=== PATIENT | male | born 1960 | race Caucasian/White ===

== ENCOUNTER 2021-08-14 15:01 | Inpatient (IN) | payer OTHER ==
[~2021-08-14] VITALS: Ht 193 cm; Wt 82.1 kg
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
[~2021-08-14 15:01] MED LIST: ASPIRIN325 PO
[2021-08-14 15:15] VITALS: BP 121/75
[2021-08-14 15:48] LABS: URINE BILIRUBIN NEGATIVE (Negative); URINE BLOOD NEGATIVE (Negative); URINE CLARITY CLEAR; URINE COLOR YELLOW; URINE GLUCOSE-RANDOM* NEGATIVE (Negative); URINE KETONES NEGATIVE (Negative); URINE LEUKOCYTES-REFLEX NEGATIVE (Negative); URINE NITRITE-REFLEX NEGATIVE (Negative); URINE PROTEIN (DIPSTICK) NEGATIVE (Negative); URINE SPECIFIC GRAVITY >= 1.030 (1.005-1.035)
[2021-08-14 15:48] LABS: ABSOLUTE NEUTROPHILS 4.7 thou/uL (1.4-8.2); BASOPHILS 1.1 % (0.0-2.0); EOSINOPHILS 2.6 % (0.0-3.0); HEMATOCRIT 45.9 % (42.0-52.0); HEMOGLOBIN 15.6 gm/dL (14.0-18.0); LYMPHOCYTES 19.1 % (24.0-44.0); MCH 33.8 pg (26.0-34.0); MCHC 33.9 g/dL (28.0-37.0); MCV 99.6 fL (80.0-100.0); MONOCYTES 8.5 % (1.0-8.0); PLATELET COUNT 211 thou/uL (150-400); POLYS 68.7 % (36.0-66.0); RBC 4.61 mil/uL (4.50-6.00); RDW 13.4 % (10.5-14.5); WBC 6.9 thou/uL (4.0-11.0)
[2021-08-14 15:57] LABS: ANION GAP 6 mmol/L (7-16); BUN 12 mg/dL (7-18); CALCIUM 8.9 mg/dL (8.5-10.1); CHLORIDE 105 mmol/L (98-107); CO2 29 mmol/L (21-32); GLUCOSE 130 mg/dL (74-106); POTASSIUM 3.7 mmol/L (3.5-5.1); SODIUM 140 mmol/L (136-145)
[2021-08-14 16:07] LABS: ALBUMIN 3.5 g/dL (3.4-5.0); SGOT 22 U/L (15-37); SGPT 32 U/L (16-63); TOTAL BILIRUBIN 0.7 mg/dL (0.2-1.0); TOTAL PROTEIN 6.9 g/dL (6.4-8.2)
[2021-08-14] MEDS ORDERED: ATORVASTATIN CA20 MG PO (22:19)
[2021-08-14] MEDS ORDERED: ASPIRIN EC81 M1 PO (22:19)
[2021-08-14 22:24] VITALS: BP 121/75
[2021-08-14 22:42] VITALS: BP 126/62
[2021-08-14 23:02] VITALS: BP 134/77
--- NOTE | 2021-08-14 23:52 | NUR ---
PT IS A/O X4 AND IS UP AD [facility]. ROOM AIR. VSS. AFEBRILE. HS MEDICATIONS GIVEN IN ED. ADMISSION COMPLETED. PT HAS BEEN EDUCATED ON USE OF CALL LIGHT AND BED CONTROLS. SR ON THE MONITOR. TELE STRIP IN CHART. PT AT THIS TIME IS EATING A BOXED LUNCH FROM THE [facility]. DENIES C/O PAIN OR DISCOMFORT AT THIS TIME. CALL LIGHT IS WITHIN REACH.
[2021-08-15 04:31] VITALS: BP 121/62
[2021-08-15 06:21] LABS: HEMATOCRIT 42.8 % (42.0-52.0); HEMOGLOBIN 14.2 gm/dL (14.0-18.0); MCH 33.5 pg (26.0-34.0); MCHC 33.1 g/dL (28.0-37.0); MCV 101.2 fL (80.0-100.0); RBC 4.23 mil/uL (4.50-6.00); RDW 13.5 % (10.5-14.5); WBC 5.8 thou/uL (4.0-11.0)
[2021-08-15 06:39] LABS: CALCIUM 8.2 mg/dL (8.5-10.1); POTASSIUM 3.2 mmol/L (3.5-5.1)
[2021-08-15 06:54] LABS: CHOLESTEROL 257 mg/dL (<200); HDL CHOLESTEROL 55 mg/dL (>40); LDL CHOLESTEROL 159 mg/dL (<100); TC:HDL 4.7 Ratio (Not establshd); TRIGLYCERIDE 217 mg/dL (<150); VLDL 43 mg/dL (<40)
[2021-08-15 06:55] LABS: SERUM ASSESSMENT Clear
[2021-08-15 09:04] VITALS: BP 132/71
--- NOTE | 2021-08-15 09:19 | NUR ---
ORDERS RECEIVED FOR EVAL AND TREAT. Pt CURRENTLY HAVING NO DIFFICULTY WITH MOBILITY AND HAS BEEN UP AD [facility]A AND AMBULATING WITH ISSUES. MAIN COMPLAINT IS RT HAND WEAKNESS. WILL DEFER UE THERAPY TO O.T. Pt DECLINING A FORMAL P.T. EVAL BUT APPEARS SAFE FOR HOME WHEN MEDICALLY CLEAR FROM P.T. STANDPOINT
--- NOTE | 2021-08-15 10:15 | NUR ---
Assumed care of pt at 0700. Pt a&ox4. Denies pain. Weakness on right upper extremity. MODOC. Scheduled for MRI today. Call light within reach. Will continue to monitor.
[2021-08-15 11:11] VITALS: BP 126/70
--- NOTE | 2021-08-15 11:56 | NUR ---
INITIAL ASSESSMENT: SW reviewed chart and spoke with nursing and attending physician. Pt was admitted from home due to right hand weakness. Neuro and neurosurgery consulted. MRIs ordered today. Pt is ambulating the hallways independently. SW met with pt at bedside. Introduced role of SW. Pt is alert/orientated x 4. Pt is very [place]. Pt reports he lives at home with friends. Prior to admission, pt was independent with ADLs. No use of DME. No hx of services or post-acute placement. Pt goes to the [facility] for primary care. Plan is for pt to discharge home when medically stable. Pt states he will have transportation home. SW is following to assist as needed with discharge planning.
--- NOTE | 2021-08-15 15:13 | 2DMMODE ---
[facility] [place] [place] [address] 2 D/M-MODE ECHOCARDIOGRAM Name: STRINGERFLASH BRYAN Room #: 442-P ADM IN M.R.#: [id number] Admission: 08/14/21 Attend Phys: Pb Burden MD Discharge: Date of : 62 Report #: [id number] THIS REPORT FOR: cc: FAM - Family physician unknown FAM - Family physician unknown Ash Clark MD [facility] ~ APPROVED REPORT Study performed: 08/15/2021 14:24:14 EXAM: Comprehensive 2D, Doppler, and color-flow Echocardiogram Patient Location: Bedside Room #: 436 Status: routine BSA: 2.10 HR: 78 bpm BP: 126/70 mmHg Rhythm: NSR Other Information Study Quality: Good Indications CVA/TIA Echo Enhancing Agent Indication: Rule out Shunt Agent(s) / Amount(s) Used: Agitated Saline 7 cc 2D Dimensions RVDd: 32.17 mm IVSd: 8.97 (7-11mm) LVOT Diam: 19.56 (18-24mm) LVDd: 52.07 mm PWd: 8.73 (7-11mm) LVDs: 31.93 (25-40mm) Left Atrium: 41.46 (27-40mm) Aortic Root: 32.97 mm IVC: 17.00 mm Volumes Left Atrial Volume (Systole) Single Plane 4CH: 49.62 mL Single Plane 2CH: 51.19 mL LA ESV Index: 26.00 mL/m2 Aortic Valve [facility] [address] [place] [address] 2 D/M-MODE ECHOCARDIOGRAM Name: FLASH STRINGER BRYAN Room #: 442-P [facility] IN ..#: [id number] Admission: 08/14/21 Attend Phys: Shonda Payne Discharge: Date of : 62 Report #: [id number] AoV Peak Robin.: 1.64 m/s AO Peak Gr.: 10.73 mmHg LVOT Max P.28 mmHg LVOT Max V: 1.03 m/s MORAIMA Vmax: 1.90 cm2 Mitral Valve E/A Ratio: 1.2 MV Decel. Time: 210.20 ms MV E Max Robin.: 1.01 m/s MV A Robin.: 0.82 m/s MV PHT: 60.96 ms IVRT: 78.43 ms Pulmonary Valve PV Peak Robin.: 1.12 m/s PV Peak Gr.: 4.98 mmHg Pulmonary Vein P Vein S: 0.66 m/s P Vein A: 0.28 m/s P Vein D: 0.54 m/s P Vein A Dur.: 110.7 msec P Vein S/D Ratio: 1.22 Tricuspid Valve TR Peak Robin.: 2.86 m/s TR Peak Gr.: 32.67 mmHg PA Pressure: 38.00 mmHg Left Ventricle The left ventricle is normal size. There is normal LV segmental wall motion. There is normal left ventricular wall thickness. Left ventricular systolic function is normal. The left ventricular ejection fraction is within the normal range. LVEF is 60-65%. The left ventricular diastolic function is normal. Right Ventricle The right ventricle is normal size. The right ventricular systolic function is normal. Atria The left atrium size is normal. Interatrial septum is intact without evidence of ASD or PFO. The right atrium size is normal. Aortic Valve The aortic valve is normal in structure. No aortic regurgitation is present. There is no aortic valvular stenosis. Mitral Valve [facility] [address] [place] [address] 2 D/M-MODE ECHOCARDIOGRAM Name: FLASH STRINGER BRYAN Room #: 442-P [facility] IN M.R.#: [id number] Admission: 08/14/21 Attend Phys: Shonda Payne Discharge: Date of : 62 Report #: [id number] The mitral valve is normal in structure. There is no mitral valve regurgitation noted. No evidence of mitral valve stenosis. Tricuspid Valve The tricuspid valve is normal in structure. There is trace tricuspid regurgitation. Estimated PAP 38 mmHg. There is mild pulmonary hypertension. Pulmonic Valve The pulmonary valve is normal in structure. There is no pulmonic valvular regurgitation. Great Vessels The aortic root is normal in size. IVC is normal in size and collapses >50% with inspiration. Pericardium There is no pericardial effusion. <Conclusion> The left ventricle is normal size. LVEF is 60-65%. The right ventricle is normal size. The left atrium size is normal. Interatrial septum is intact without evidence of ASD or PFO. The aortic valve is normal in structure. There is no mitral valve regurgitation noted. There is trace tricuspid regurgitation. Estimated PAP 38 mmHg. There is mild pulmonary hypertension. The aortic root is normal in size. There is no pericardial effusion. <ELECTRONICALLY SIGNED> By: Ash Clark MD, FACC 08/15/21 1513 [id number] Ash Clark MD, FACC /INF
[2021-08-15 15:44] VITALS: BP 131/74
[2021-08-15 20:22] VITALS: BP 126/66
[2021-08-16 02:06] LABS: GLYCOHEMOGLOBIN (HGB A1C) 5.3 % (4.8-5.6)
--- NOTE | 2021-08-16 04:08 | NUR ---
ASSUMED PT CARE AT 1900.PT'S FAMILY AT HIS BEDSIDE AT SHIFT CHANGE.PT DENIED PAIN SO FAR.UP ADLIB IN THE ROOM WITH A STEADY GAIT.DR MARTINEZ HERE AT SHIFT CHANGE TO SEE PT,REQUESTED FOR RESULT OF MRI,OBTAINED RESULT AND LEFT IT IN PT'S CHART UNDER RADIOLOGY.PT WITH NON PRODUCTIVE COUGH.PT RESTING ON HIS BED AT THIS TIME.CALL LIGHT WITHION REACH.
[2021-08-16 07:00] VITALS: BP 139/70
[2021-08-16 11:52] VITALS: BP 132/68
[2021-08-16 13:28] VITALS: BP 132/68
--- NOTE | 2021-08-16 13:30 | NUR ---
DISCHARGE NOTE: KASH reviewed chart and spoke with nursing and attending physician. Pt had MRI and will likely be ready to discharge home later today pending neuro and neurosurgery clearance. Recommendation made for pt to do outpatient OT. KASH met with pt at bedside to discuss discharge plan. Pt states he is aware for outpt OT and is in the process of making arrangements to start outpt therapy. Pt states his friend will be at the hospital later today and will be able to drive him home. KASH updated attending physician. Will need script for outpt OT. No additional SW needs identified at this time, but is available to assist should needs arise.
--- NOTE | 2021-08-16 13:46 | NUR ---
ASSUMED PT CARE THIS AM. PT IS ALERT & ORIENTED X4. PT IS UP AD CARM[facility]A. PT IS ON TELE MONITOR ON. PT [place]. PT HAS BEEN AMBULATING THE HALLWAY. PT STATED THAT HE IS ABLE TO MOVE HIS R HAND TODAY. PT TOLERATED DIET AND MEDICATION WELL. NO C/O OF NAUSEA AND VOMITING. WILL CONTINUE TO MONITOR PT. FOLLOW POC.
[2021-08-16] MEDS ORDERED: SYMBICORT160 MCG/4. INH (14:23)
[2021-08-16] MEDS ORDERED: PROAIR HFA8.5 GM INH (14:23)
[2021-08-16] MEDS ORDERED: CLOPIDOGREL75 MG PO (14:23)
[2021-08-16] MEDS ORDERED: OTHER MISCELL (14:33)
== END 2021-08-16 15:03 | disposition home or self-care (01) | DRG 66 ==
LOC: ER 15:01 → EROBS 20:22 → 4S 20:22
PROVIDERS: Nurse Practitioner; Nurse Practitioner Family; Psychiatry & Neurology Neuromuscular Medicine; ADMIT Hospitalist; ATTEND Hospitalist
DX: I63.9 Cerebral infarction, unspecified (principal); G58.8 Other specified mononeuropathies; J43.9 Emphysema, unspecified; E78.5 Hyperlipidemia, unspecified; I25.10 Atherosclerotic heart disease of native coronary artery without angina pectoris; Z20.822 Contact with and (suspected) exposure to COVID-19; F17.210 Nicotine dependence, cigarettes, uncomplicated; R91.1 Solitary pulmonary nodule; Z71.6 Tobacco abuse counseling; Z90.49 Acquired absence of other specified parts of digestive tract; I25.2 Old myocardial infarction; Z79.82 Long term (current) use of aspirin; Z79.899 Other long term (current) drug therapy
CPT/HCPCS: 10100